=== PATIENT | female | born 1960 | race Caucasian/White ===

== ENCOUNTER 2016-12-08 12:00 | Emergency (ER) | payer OTHER ==
[~2016-12-08] VITALS: Ht 157.5 cm; Wt 74.8 kg
[2016-12-08 12:00] VITALS: BP_SYST 147
[2016-12-08 12:17] LABS: BASOPHILS # (AUTO) 0.1 K/uL (0.0-0.2); EOSINOPHILS % (AUTO) 0.6 % (0.0-4.0); HEMATOCRIT 36.5 % (36-48); HEMOGLOBIN 12.5 g/dL (12.0-16.0); LYMPHOCYTES % (AUTO) 27.3 % (20.5-51.5); MEAN CORPUSCULAR HEMOGLOBIN 31 pg (27-31); MEAN CORPUSCULAR HGB CONC 34 % (32-36); MEAN CORPUSCULAR VOLUME 92 fL (79.0-98.0); MONOCYTES # (AUTO) 0.4 K/uL (0.0-1.0); MONOCYTES % (AUTO) 5.1 % (1.7-9.3); NEUTROPHILS # (AUTO) 4.7 K/uL (1.8-7.7); PLATELET COUNT (AUTO) 343 K/uL (130-430); RED BLOOD CELL COUNT(AUTO) 3.99 MIL/uL (4.2-6.2); RED CELL DISTRIBUTION WIDTH 12.2 % (9.0-15.0); WHITE BLOOD COUNT (AUTO) 7.2 K/uL (4.8-10.8)
[2016-12-08 12:44] LABS: ANION GAP 12 (5-15); CALCIUM 10.4 mg/dL (8.4-11.0); CHLORIDE 102 mmol/L (98-107); CREATININE 1.55 mg/dL (0.55-1.30); GLUCOSE 161 mg/dL (70-99); POTASSIUM 4.2 mmol/L (3.5-5.1); SODIUM SERUM 140 mmol/L (136-145); UREA NITROGEN, BLOOD 28 mg/dL (8-21)
[2016-12-08 12:48] LABS: ALANINE AMINOTRANSFERASE 50 U/L (12-78); ALBUMIN 5.4 g/dL (3.4-4.8); ASPARTATE AMINOTRANSFERASE 37 U/L (10-37); TOTAL BILIRUBIN 1.1 mg/dL (0.0-1.0)
[2016-12-08 12:51] LABS: GFR AFRICAN AMERICAN 44 mL/min (>90)
[2016-12-08 12:52] LABS: PROTHROMBIN TIME 9.9 SECS (9.5-12.5)
[2016-12-08 12:54] LABS: ACETAMINOPHEN < 1 ug/mL (1-30); ALCOHOL, BLOOD < 3 mg/dL (<10)
[2016-12-08 13:16] LABS: CKMB RELATIVE INDEX 1.3 (0.0-2.9); CREATINE KINASE MB 3.8 ng/mL (0-3.6)
[2016-12-08] MEDS ORDERED: DIPHENHYDRAMINE HCL 25 MG CAPSULE PO ONE (14:45)
[2016-12-08] MEDS ORDERED: IBUPROFEN 800 MG TABLET PO ONE (15:00)
[2016-12-08] MEDS ORDERED: PARO40TA45 PO (15:12)
[2016-12-08] MEDS ORDERED: GABA-531 PO (15:12)
[2016-12-08] MEDS ORDERED: seroquel (15:12)
[2016-12-08 16:27] VITALS: BP_SYST 150
== END 2016-12-08 16:27 | disposition home or self-care (01) ==
LOC: SED 12:00
DX: R45.851 Suicidal ideations (principal); R44.0 Auditory hallucinations; F15.90 Other stimulant use, unspecified, uncomplicated; R79.1 Abnormal coagulation profile; I10 Essential (primary) hypertension; Z79.899 Other long term (current) drug therapy
CPT/HCPCS: 36415; 80053; 82550; 82553; 84484; 85025; 85610; 85730; 93005; 99285; G0480; G0481; G0482; Q0163